=== PATIENT | female | born 1965 | race Caucasian/White ===

== ENCOUNTER 2021-10-10 13:19 | Inpatient (IN) | payer MEDICARE, OTHER ==
[~2021-10-10] VITALS: Ht 144.8 cm; Wt 34.9 kg
[2021-10-10] MEDS ORDERED: LACTATED RINGER'S 1,000 ML IV ONE (13:30)
[2021-10-10 13:52] LABS: EOSINOPHILS # (AUTO) 0.2 (0.0-0.4); EOSINOPHILS % 4.6 % (0.0-6.0); HEMATOCRIT 41.4 % (34.2-44.1); HEMOGLOBIN 13.5 g/dL (12.0-16.0); LYMPHOCYTES # (AUTO) 0.6 (1.0-3.2); LYMPHOCYTES % 14.1 % (18.0-39.1); MEAN CORPUSCULAR HEMOGLOBIN 28.4 pg (28-32); MEAN CORPUSCULAR HGB CONC 32.6 g/dL (31-35); MEAN CORPUSCULAR VOLUME 87.2 fL (81-99); MONOCYTES # (AUTO) 0.2 (0.2-0.8); MONOCYTES % 5.1 % (4.4-11.3); NEUTROPHILS # (AUTO) 3.1 (2.1-6.9); NEUTROPHILS % 75.2 % (38.7-80.0); PLATELET COUNT 126 x10e3/uL (140-360); RED BLOOD COUNT 4.75 x10e6/uL (3.6-5.1); RED CELL DISTRIBUTION WIDTH 13.3 % (11.7-14.4)
[2021-10-10 14:15] LABS: B-TYPE NATRIURETIC PEPTIDE2 < 12.0 pg/mL (0-100)
[2021-10-10 14:42] LABS: ALANINE AMINOTRANSFERASE 13 IU/L (0-55); ALBUMIN 3.4 g/dL (3.5-5.0); ALBUMIN/GLOBULIN RATIO 1.3 (0.8-2.0); ALKALINE PHOSPHATASE 59 IU/L (40-150); ANION GAP 14.5 mmol/L (8-16); BLOOD UREA NITROGEN 21 mg/dL (7-26); BUN/CREATININE RATIO 37 (6-25); CALCIUM 8.1 mg/dL (8.4-10.2); CARBON DIOXIDE 25 mmol/L (22-29); CHLORIDE 106 mmol/L (98-107); CREATINE KINASE 149 IU/L (29-168); CREATININE, SERUM 0.57 mg/dL (0.57-1.11); GLUCOSE 143 mg/dL (74-118); POTASSIUM 3.5 mmol/L (3.5-5.1); SODIUM 142 mmol/L (136-145)
[2021-10-10] MEDS ORDERED: DEXAMETHASONE PHOS 4MG/ML 5ML MULTIDOSE VIAL IV ONE (15:30)
[2021-10-10 16:11] VITALS: BP 98/63
[2021-10-10 17:42] VITALS: BP 124/81
[2021-10-10 18:03] VITALS: BP 124/81
[2021-10-10 20:00] VITALS: BP 147/88
[2021-10-10 20:59] VITALS: BP 147/88
[2021-10-10 23:41] VITALS: BP 158/87
[2021-10-11 05:54] VITALS: BP 103/60
[2021-10-11 08:21] VITALS: BP 103/60
[2021-10-11 09:06] VITALS: BP 94/65
[2021-10-11 11:17] VITALS: BP 111/75
[2021-10-11] MEDS ORDERED: SODIUM CHLORIDE 0.9% 250ML 250 ML ONE (11:28)
[2021-10-11 13:55] LABS: CLARITY,URINE CLEAR (CLEAR); COLOR,URINE YELLOW (YELLOW); KETONES,URINE NEGATIVE (NEGATIVE); LEUKOCYTE ESTERASE ,URINE NEGATIVE (NEGATIVE); NITRITE,URINE NEGATIVE (NEGATIVE); PROTEIN,URINE DIPSTICK NEGATIVE (NEGATIVE); URINE UROBILINOGEN 0.2 mg/dL (0.2 - 1)
[2021-10-11 14:17] LABS: BACTERIA,URINE RARE /HPF; RBC,URINE 0-5 /HPF (0-5)
[2021-10-11] MEDS: BACLOFEN 10 MG TAB PO SCH ×2 (15:28→22:23)
[2021-10-11 16:15] VITALS: BP 93/75
[2021-10-11] MEDS: GABAPENTIN 100 MG CAP PO SCH (17:03)
[2021-10-11] MEDS: ENOXAPARIN SOD INJ 40 MG/0.4 ML SYR SC SCH (17:03)
[2021-10-11 20:00] VITALS: BP 89/57
[2021-10-12] VITALS (8 sets, daily range): BP systolic 85–131; BP diastolic 55–84
[2021-10-12] MEDS ORDERED: DEXAMETHASONE SOD PHOS INJ 4 MG/ML SDV IV SCH (09:00)
[2021-10-12] MEDS: GABAPENTIN 100 MG CAP PO SCH ×2 (09:14→16:28)
[2021-10-12] MEDS: BACLOFEN 10 MG TAB PO SCH ×3 (09:14→21:35)
[2021-10-12] MEDS: ENOXAPARIN SOD INJ 40 MG/0.4 ML SYR SC SCH (16:29)
[2021-10-13 00:21] VITALS: BP 91/87
[2021-10-13 04:04] VITALS: BP 119/73
[2021-10-13 07:47] VITALS: BP 90/63
[2021-10-13 08:13] VITALS: BP 90/63
[2021-10-13] MEDS: BACLOFEN 10 MG TAB PO SCH (09:58)
[2021-10-13] MEDS: GABAPENTIN 100 MG CAP PO SCH (09:58)
[2021-10-13 12:02] VITALS: BP 113/67
[2021-10-13 15:36] VITALS: BP 110/68
== END 2021-10-13 17:57 | disposition home or self-care (01) | DRG 178 ==
LOC: ER 13:25 → ERHOLD 14:43 → MED/SURG3 16:57
PROVIDERS: ADMIT Family Medicine; ATTEND Family Medicine
DX: U07.1 COVID-19 (principal); E44.0 Moderate protein-calorie malnutrition; Z68.1 Body mass index [BMI] 19.9 or less, adult; R62.7 Adult failure to thrive; R09.02 Hypoxemia; G24.9 Dystonia, unspecified; R13.10 Dysphagia, unspecified; H91.3 Deaf nonspeaking, not elsewhere classified; Z74.01 Bed confinement status; Z86.73 Personal history of transient ischemic attack (TIA), and cerebral infarction without residual deficits; Z88.5 Allergy status to narcotic agent; Z88.2 Allergy status to sulfonamides; Z88.8 Allergy status to other drugs, medicaments and biological substances
CPT/HCPCS: 36415; 71045; 80053; 81001; 82550; 82553; 82948; 83605; 83880; 84484; 85025; 87040; 87086; 93005; 94799; 97139; 99251; 99285; J0456; J1650; J2543; J7050; J7121